=== PATIENT | male | born 2000 | race Two or more races ===

== ENCOUNTER 2020-02-17 11:49 | Emergency (ER) | payer BC ==
[~2020-02-17] VITALS: Ht 172.7 cm; Wt 80.0 kg
[2020-02-17 12:12] VITALS: BP 141/79
[2020-02-17] MEDS ORDERED: ACETAMINOPHEN 500 MG TABLET PO ONE (12:30)
== END 2020-02-17 13:35 | disposition home or self-care (01) ==
LOC: EMS 11:51
DX: B34.9 Viral infection, unspecified (principal); F12.90 Cannabis use, unspecified, uncomplicated
CPT/HCPCS: 87430

== ENCOUNTER 2020-06-19 13:47 | Emergency (ER) | payer BC, OTHER ==
[~2020-06-19] VITALS: Ht 170.2 cm; Wt 81.8 kg
[2020-06-19 14:08] VITALS: BP 115/65
[2020-06-19] MEDS ORDERED: GENTAMICIN SULFATE 0.3% OPHTHALMIC SOLUTION 5 ML OS ONE (14:15)
[2020-06-19] MEDS ORDERED: ACETAMINOPHEN 325 MG TABLET PO ONE (14:15)
== END 2020-06-19 14:51 | disposition home or self-care (01) ==
LOC: EMS 13:58
DX: H10.9 Unspecified conjunctivitis (principal); F12.90 Cannabis use, unspecified, uncomplicated